=== PATIENT | male | born 1980 | race Caucasian/White ===

== ENCOUNTER → 2017-04-02 | Outpatient (CLI) | payer BC | LOC: CIMAGING 10:43 | PROVIDERS: ATTEND Family Medicine | DX: M25.511 Pain in right shoulder (principal) | CPT/HCPCS: 73010-PO; 73030-PO ==

== ENCOUNTER → 2017-04-10 | Outpatient (CLI) | payer OTHER, BC | LOC: CIMAGING 15:41 | PROVIDERS: ATTEND Family Medicine | DX: M54.5 Low back pain (principal); M46.1 Sacroiliitis, not elsewhere classified | CPT/HCPCS: 72100-PO; 72170-PO ==

== ENCOUNTER → 2017-04-14 | Outpatient (CLI) | payer OTHER, BC | LOC: FIMAGING 17:57 | PROVIDERS: ATTEND Family Medicine | DX: M75.81 Other shoulder lesions, right shoulder (principal); M75.51 Bursitis of right shoulder ==